=== PATIENT | female | born 1990 ===

== ENCOUNTER 2019-07-06 15:33 | Emergency (ER) | payer OTHER ==
[~2019-07-06] VITALS: Ht 167.6 cm; Wt 61.2 kg
[~2019-07-06 15:33] MED LIST: PERCOCET 5/3251 TAB PO
[2019-07-06] MEDS ORDERED: ZOFRAN8 MG (16:01)
[2019-07-06] MEDS ORDERED: PRENATABS RX T1 EACH (16:02)
== END 2019-07-06 19:37 | disposition home or self-care (01) ==
LOC: ER 15:33
DX: O26.892 Other specified pregnancy related conditions, second trimester (principal); R10.2 Pelvic and perineal pain; Z34.02 Encounter for supervision of normal first pregnancy, second trimester

== ENCOUNTER 2019-10-31 19:14 | Outpatient (CLI) | payer OTHER ==
[~2019-10-31 19:14] MED LIST changes: +PRENATABS RX T1 EACH; +ZOFRAN8 MG
== END 2019-11-01 19:20 | disposition home or self-care (01) ==
LOC: OBS/DEL 19:14
PROVIDERS: ATTEND Obstetrics & Gynecology
DX: O26.893 Other specified pregnancy related conditions, third trimester (principal); Z04.3 Encounter for examination and observation following other accident; W18.39XA Other fall on same level, initial encounter; Y93.89 Activity, other specified; Y92.89 Other specified places as the place of occurrence of the external cause; Y99.8 Other external cause status

== ENCOUNTER 2019-11-26 16:53 | Outpatient (CLI) | payer OTHER | END 2019-11-27 17:53 | disposition home or self-care (01) | LOC: OBS/DEL 16:53 | PROVIDERS: ATTEND Obstetrics & Gynecology | DX: O60.03 Preterm labor without delivery, third trimester (principal) ==

== ENCOUNTER 2019-12-09 16:42 | Outpatient (CLI) | payer OTHER ==
[2019-12-09] MEDS ORDERED: PROFERRIN-FORT1 EACH PO (17:55)
== END 2019-12-10 14:15 | disposition home or self-care (01) ==
LOC: OBS/DEL 16:42
PROVIDERS: ATTEND Obstetrics & Gynecology
DX: O26.893 Other specified pregnancy related conditions, third trimester (principal); R10.32 Left lower quadrant pain; R10.2 Pelvic and perineal pain

== ENCOUNTER 2019-12-20 14:45 | Inpatient (IN) | payer OTHER ==
[~2019-12-20] VITALS: Ht 167.6 cm; Wt 72.6 kg
[~2019-12-20 14:45] MED LIST changes: +PROFERRIN-FORT1 EACH PO
== END 2019-12-23 12:57 | DRG 807 ==
LOC: LDR 12-21 03:56 → SURG-SUITE 12-21 03:56 → LDR 12-26 14:45 → OB/GYN 12-26 14:45
PROVIDERS: ADMIT Obstetrics & Gynecology; ATTEND Obstetrics & Gynecology
PROC: 10E0XZZ Delivery of Products of Conception, External Approach (ICD-10-PCS; principal; 2019-12-21)
PROC: 0KQM0ZZ Repair Perineum Muscle, Open Approach (ICD-10-PCS; 2019-12-21)
PROC: 4A0HXFZ Measurement of Products of Conception, Cardiac Rhythm, External Approach (ICD-10-PCS; 2019-12-21)
DX: O70.1 Second degree perineal laceration during delivery (principal); Z37.0 Single live birth; Z3A.39 39 weeks gestation of pregnancy